=== PATIENT | female | born 1970 | race Two or more races ===

== ENCOUNTER 2016-05-29 07:11 | Emergency (ER) | payer MEDICAID ==
[~2016-05-29] VITALS: Ht 157.5 cm; Wt 126.1 kg
[2016-05-29 08:52] VITALS: BP 139/78
== END 2016-05-29 09:33 | disposition home or self-care (01) ==
LOC: ER 07:13
DX: J02.9 Acute pharyngitis, unspecified (principal); J32.9 Chronic sinusitis, unspecified

== ENCOUNTER 2017-12-11 19:08 | Emergency (ER) | payer MEDICAID ==
[~2017-12-11] VITALS: Ht 157.5 cm; Wt 136.1 kg
[2017-12-11 21:11] LABS: Basophils # (auto) 0.1 uL; Basophils % (auto) 0.4 % (0.0-2.0); Eosinophils # (auto) 0.1 uL; Eosinophils % (auto) 1.2 % (0.0-7.0); Hematocrit 43.7 % (36.0-46.0); Hemoglobin 14.9 g/dL (12.2-16.2); Lymphocytes # (auto) 1.3 uL; Lymphocytes % (auto) 11.8 % (10.0-50.0); Mean Corpuscular Hemoglobin 31.3 pg (28.0-32.0); Mean Corpuscular Hgb Conc. 34.1 g/dL (32.0-36.0); Monocytes # (auto) 0.4 uL; Monocytes % (auto) 3.6 % (0.0-12.0); Neutrophils # (auto) 9.4 uL; Nucleated Red Blood Cells % 0.1 %; Platelet Count (auto) 279 10^3/uL (140-450); Red Blood Cells 4.75 10^6/uL (4.0-5.20); Red Cell Distribution Width 14.7 % (11.8-14.3); White Blood Cell 11.4 10^3/uL (4.4-10.8)
[2017-12-11 21:18] LABS: INR 0.94 (0.9-1.15); Partial Thromboplastin Time 28.5 sec (23.78-33.04); Prothrombin Time 10.1 sec (9.27-12.13)
[2017-12-11 21:19] LABS: Albumin 3.2 g/dL (3.4-5.0); BUN/Creatinine Ratio 16.1; Potassium 3.7 mmol/L (3.5-5.1)
[2017-12-11 21:22] LABS: Bilirubin, Total 0.5 mg/dL (0.2-1.0); Total Protein 7.1 g/dL (6.4-8.2)
[2017-12-11 23:30] VITALS: BP 119/35
[2017-12-11] MEDS ORDERED: ONDANSETRON HCL 4 MG/2 ML VIAL IV ONE (23:30)
[2017-12-11] MEDS ORDERED: KETOROLAC TROMETH 30 MG/ML 1ML VIAL IV ONE (23:30)
[2017-12-11] MEDS ORDERED: SODIUM CHLORIDE 0.9% 1,000 ML IV ONE (23:30)
== END 2017-12-12 00:51 | disposition home or self-care (01) ==
LOC: ER 19:12
DX: K80.20 Calculus of gallbladder without cholecystitis without obstruction (principal); K52.9 Noninfective gastroenteritis and colitis, unspecified; J45.909 Unspecified asthma, uncomplicated; Z88.6 Allergy status to analgesic agent
CPT/HCPCS: 36415; 76705; 80053; 82150; 83690; 85025; 85610; 85730; 96361; 96374; 96375; 99285; J1885; J2405; J7030

== ENCOUNTER 2018-09-09 20:55 | Emergency (ER) | payer MEDICAID ==
[~2018-09-09] VITALS: Ht 157.5 cm; Wt 136.1 kg
[2018-09-09 22:59] LABS: Urine Bacteria FEW /hpf (None Seen); Urine Blood 2+ /uL (Negative); Urine Specific Gravity 1.017 (1.001-1.035); Urine WBC 19 /hpf (0 - 5)
[2018-09-09] MEDS ORDERED: cefTRIAXone SOD 1,000 MG VL IM ONE (23:45)
[2018-09-09 23:59] VITALS: BP 145/71
== END 2018-09-10 00:13 | disposition home or self-care (01) ==
LOC: ER 20:55
DX: N39.0 Urinary tract infection, site not specified (principal); Z88.6 Allergy status to analgesic agent
CPT/HCPCS: 81001; 96372; 99283; J0696

== ENCOUNTER 2019-03-07 06:04 | Emergency (ER) | payer MEDICAID ==
[~2019-03-07] VITALS: Ht 157.5 cm; Wt 136.1 kg
[2019-03-07] MEDS ORDERED: IPRATROPIUM BROM 0.5 MG/2.5ML INH SOL NEB ONE (06:30)
[2019-03-07] MEDS ORDERED: ALBUTEROL SULF 2.5 MG/0.5ML(0.5%) NEB SOLN NEB ONE (06:30)
[2019-03-07] MEDS ORDERED: methylPREDNISolone SOD SUCC 125 MG/2 ML VL IM ONE (07:30)
[2019-03-07] MEDS ORDERED: cefTRIAXone SOD 1,000 MG VL IM ONE (07:30)
[2019-03-07 07:41] VITALS: BP 108/68
[2019-03-07] MEDS ORDERED: LIDOCAINE 2% (LOCAL ANESTH.) PF 5ml SDV ONE (07:44)
[2019-03-07] MEDS ORDERED: LIDOCAINE 2%HCL (LOCAL ANESTH.) INJ 10ml MDV IJ ONE (07:45)
== END 2019-03-07 08:20 | disposition home or self-care (01) ==
LOC: ER 06:04
DX: J45.901 Unspecified asthma with (acute) exacerbation (principal); J32.9 Chronic sinusitis, unspecified
CPT/HCPCS: 94640; 96372; 99283; J0696; J2001; J2930; J7611; J7644

== ENCOUNTER 2022-04-26 19:26 | Emergency (ER) | payer MEDICAID ==
[~2022-04-26] VITALS: Ht 157.5 cm; Wt 129.1 kg
[2022-04-26] MEDS ORDERED: KETOROLAC TROMETH 60MG/2ML VIAL IM ONE (19:45)
[2022-04-26 20:24] LABS: Basophils # (auto) 0.1 10 ^3/uL (0-0.2); Eosinophils # (auto) 0.3 10 ^3/uL (0-0.8); Eosinophils % (auto) 1.9 % (0.0-7.0); Hematocrit 41.1 % (36.0-46.0); Hemoglobin 13.9 g/dL (12.2-16.2); Lymphocytes # (auto) 4.7 10 ^3/uL (0.4-5.4); Lymphocytes % (auto) 32.3 % (10.0-50.0); Mean Corpuscular Hemoglobin 28.9 pg (28.0-32.0); Mean Corpuscular Hgb Conc. 33.9 g/dL (32.0-36.0); Mean Corpuscular Volume 85.3 fL (80.0-100.0); Monocytes # (auto) 0.7 10 ^3/uL (0-1.3); Monocytes % (auto) 5.2 % (0.0-12.0); Neutrophils # (auto) 8.6 10 ^3/uL (1.6-8.6); Neutrophils % (auto) 59.6 % (37.0-80.0); Red Blood Cells 4.82 10^6/uL (4.0-5.20); Red Cell Distribution Width 17.1 % (11.8-14.3); White Blood Cell 14.4 10^3/uL (4.4-10.8)
[2022-04-26 20:38] LABS: Albumin 3.9 g/dL (3.4-5.0); BUN/Creatinine Ratio 22.9; Calcium 9.7 mg/dL (8.5-10.1)
[2022-04-26 20:40] LABS: Bilirubin, Total 0.5 mg/dL (0.2-1.0); Total Protein 7.9 g/dL (6.4-8.2)
[2022-04-26 21:25] LABS: Urine Bacteria NONE SEEN /hpf (None Seen); Urine Blood Negative /uL (Negative); Urine Mucus FEW (None Seen); Urine Specific Gravity 1.028 (1.001-1.035); Urine WBC 21 /hpf (0 - 5)
[2022-04-26] MEDS ORDERED: DICY10CA PO (21:36)
[2022-04-26 22:01] VITALS: BP 138/74
== END 2022-04-26 22:03 | disposition home or self-care (01) ==
LOC: ER 19:27
DX: K80.20 Calculus of gallbladder without cholecystitis without obstruction (principal); J45.909 Unspecified asthma, uncomplicated; Z88.8 Allergy status to other drugs, medicaments and biological substances
CPT/HCPCS: 36415; 74176; 80053; 81001; 85025; 96372; 99284; J1885

== ENCOUNTER 2022-07-31 16:10 | Emergency (ER) | payer MEDICAID ==
[~2022-07-31] VITALS: Ht 157.5 cm; Wt 130.2 kg
[~2022-07-31 16:10] MED LIST: DICY10CA PO
[2022-07-31 20:27] VITALS: BP 155/86
== END 2022-07-31 20:32 | disposition left against medical advice (07) ==
LOC: ER 16:10
DX: M25.561 Pain in right knee (principal); Z53.21 Procedure and treatment not carried out due to patient leaving prior to being seen by health care provider; W18.39XA Other fall on same level, initial encounter; Y93.89 Activity, other specified; Y92.89 Other specified places as the place of occurrence of the external cause; Y99.8 Other external cause status
CPT/HCPCS: 73562